=== PATIENT | male | born 1965 | race Caucasian/White ===

== ENCOUNTER 2016-09-17 02:18 | Inpatient (IN) | payer OTHER ==
[~2016-09-17] VITALS: Ht 180.3 cm; Wt 97.5 kg
[2016-09-17] MEDS ORDERED: ONDANSETRON 4 MG INJ ONE (02:37)
[2016-09-17] MEDS ORDERED: morphine 4 MG/ML VIAL ONE (02:37)
[2016-09-17] MEDS ORDERED: morphine 4 MG/ML VIAL IV STA (02:38)
[2016-09-17] MEDS ORDERED: ONDANSETRON 4 MG INJ IV STA (02:38)
--- NOTE | 2016-09-17 02:38 | ERA ---
ER Documentation Chief Complaint Date/Time DATE: 09/17/16 TIME: 02:37 Chief Complaint mid abd pain since 30 minutes ago, distended abdomen HPI The patient is a 50-year-old male, presenting to the ER because of severe upper abdominal pain that began about an hour prior to arrival while he was sleeping, 04/18, no aggravating or relieving factor, associated with vomiting initially food and mucus. He denies similar symptoms previously. He denies fever, chills , neck pain, chest pain, dysuria, diarrhea, constipation. He does not smoke nor drink Past medical history/surgical history: None ROS All systems reviewed and are negative except as per history of present illness. Allergies Allergies: Coded Allergies: No Known Allergy (Unverified , 09/17/16) PMhx/Soc History of Surgery: No Anesthesia Reaction: No Hx Neurological Disorder: No Hx Respiratory Disorders: No Hx Cardiac Disorders: No Hx Psychiatric Problems: No Hx Miscellaneous Medical Probl: Yes (unbilical hernia) Hx Alcohol Use: No Hx Substance Use: No Hx Tobacco Use: No Smoking Status: Never smoker Physical Exam Vitals Vital Signs Date Time Temp Pulse Resp B/P Pulse Ox O2 Delivery O2 Flow Rate FiO2 09/17/16 02:42 95.6 94 21 171/100 96 Room Air 09/17/16 02:21 98.9 99 20 180/104 98 Physical Exam Const: No acute distress. Head: Atraumatic. Eyes: Normal Conjunctiva. ENT: Normal External Ears, Nose and Mouth. Neck: Full range of motion. No meningismus. Resp: Clear to auscultation bilaterally. Cardio: Regular rate and rhythm, no murmurs. Abd: Soft, non distended, normal bowel sounds, moderate upper abdominal tenderness, small reducible umbilical hernia, no rigidity, rebound, CVA tenderness Skin: No petechiae or rashes. Back: No midline or flank tenderness. Ext: No cyanosis, or edema. Neur: Awake and alert. No focal deficit Psych: Normal Mood and Affect. Result Diagram: 09/17/16 0251 09/17/16 0251 Results 24 hrs Laboratory Tests Test 09/17/16 02:51 Activated Partial Thromboplast Time 23.0Sec Alanine Aminotransferase (ALT/SGPT) 51IU/L Albumin 4.3g/dl Albumin/Globulin Ratio 1.22 Alkaline Phosphatase 69IU/L Anion Gap 22 Aspartate Amino Transf (AST/SGOT) 44IU/L Basophils # 0.010^3/ul Basophils % 0.3% Blood Urea Nitrogen 15mg/dl Calcium Level 9.6mg/dl Carbon Dioxide Level 24mmol/L Chloride Level 104mmol/L Creatinine 0.96mg/dl Direct Bilirubin 0.00mg/dl Eosinophils # 0.110^3/ul Eosinophils % 0.9% Globulin 3.50g/dl Glucose Level 161mg/dl Hematocrit 51.2% Hemoglobin 16.8g/dl INR International Normalized Ratio 0.95 Indirect Bilirubin 0.4mg/dl Lipase 49600Y/L Lymphocytes # 3.710^3/ul Lymphocytes % 31.0% Mean Corpuscular Hemoglobin 31.6pg Mean Corpuscular Hemoglobin Concent 32.8g/dl Mean Corpuscular Volume 96.2fl Mean Platelet Volume 11.9fl Monocytes # 1.310^3/ul Monocytes % 10.8% Neutrophils # 6.810^3/ul Neutrophils % 56.5% Nucleated Red Blood Cells # 0.010^3/ul Nucleated Red Blood Cells % 0.0/100WBC Platelet Count 34329^3/UL Potassium Level 4.0mmol/L Prothrombin Time 12.7Sec Prothrombin Time Ratio 1.0 Red Blood Count 5.3210^6/ul Red Cell Distribution Width 12.5% Sodium Level 146mmol/L Total Bilirubin 0.4mg/dl Total Protein 7.8g/dl White Blood Count 12.010^3/ul Current Medications Medications (Trade) Dose Ordered Sig/Heidi Route PRN Reason Start Time Stop Time Status Last Admin Dose Admin Ondansetron HCl (Zofran Inj) 4 mg STK-MED ONCE .ROUTE 09/17/16 02:37 09/17/16 02:38 DC Morphine Sulfate (morphine) 4 mg STK-MED ONCE .ROUTE 09/17/16 02:37 09/17/16 02:38 DC Morphine Sulfate (morphine) 4 mg ONCE STAT IV 09/17/16 02:38 09/17/16 02:39 DC 09/17/16 02:51 Ondansetron HCl 4 mg 4 mg ONCE STAT IV 09/17/16 02:38 09/17/16 02:39 DC 09/17/16 02:51 Sodium Chloride (NS) 1,000 ml @ 1,000 mls/hr Q1H ONCE IV 09/17/16 03:00 09/17/16 03:59 DC 09/17/16 02:51 Hydromorphone HCl 1 mg 1 mg ONCE STAT IV 09/17/16 02:45 09/17/16 02:46 DC 09/17/16 02:52 Sodium Chloride 1,000 ml @ 1,000 mls/hr Q1H ONCE IV 09/17/16 05:00 09/17/16 05:59 09/17/16 05:37 Sodium Chloride (NS) 1,000 ml @ 100 mls/hr Q10H IV 09/17/16 05:28 UNV IV Flush (NS 3 ml) 3 ml PER PROTOCOL IV 09/17/16 05:30 Lorazepam (Ativan) 0.5 mg Q6H PRN IV ANXIETY 09/17/16 05:30 Ondansetron HCl (Zofran Inj) 4 mg Q6H PRN IV NAUSEA AND/OR VOMITING 09/17/16 05:30 Acetaminophen (Tylenol Supp) 650 mg Q6H PRN TX PAIN LEVEL 1-3 OR FEVER 09/17/16 05:30 Hydromorphone HCl (Dilaudid) 1 mg ONCE STAT IV 09/17/16 05:41 09/17/16 05:43 DC 09/17/16 05:49 Procedures/MDM EKG: Read by emergency physician Rate/Rhythm: Normal Sinus Rhythm 62 beats/min QRS, ST, T-waves: No ST elevation, no T inversion Impression: Normal EKG [place] [id number] Radiology Main Line: [phone] DIAGNOSTIC IMAGING REPORT Patient: CAT TOUSSAINT : 1965 Age: 50 Sex: M MR #: [id number] DOS: 09/17/16 0238 Ordering MD: DAJUAN GARCIA MD Location: E/R Room/Bed: PROCEDURE: XR Chest. CLINICAL INDICATION: Pain. TECHNIQUE: Single frontal chest x-ray. COMPARISON: None. FINDINGS: Heart is mildly enlarged.. No CHF.. Hypoventilation with bibasilar atelectasis.. There is no pleural effusion. There is no pneumothorax. The osseous structures are unremarkable. IMPRESSION: Cardiomegaly. Hypoventilation with bibasilar atelectasis. RPTAT: [facility] .Dajuan Jacome MD, MD Date Time Electronically viewed and signed by .Dajuan Jacome MD, MD on 09/17/2016 03:10 .K/ CC: DAJUAN GARCIA MD [place] [address] Radiology Main Line: [phone] DIAGNOSTIC IMAGING REPORT Patient: CAT TOUSSAINT : 1965 Age: 50 Sex: M MR #: [id number] DOS: 09/17/16 0238 Ordering MD: DAJUAN GARCIA MD Location: E/R Room/Bed: PROCEDURE: CT ABDOMEN/PELVIS WITHOUT CONTRAST CLINICAL INDICATION: 50-year-old male with abdominal pain. TECHNIQUE: The study was performed utilizing a [employer] VCT 64-slice CT scanner. Direct axial sections were obtained through the abdomen and pelvis without the use of intravenous contrast material. Sagittal and coronal reformations were obtained. Automated exposure control and iterative reconstruction techniques were utilized for this examination. The images were reviewed on a PACS workstation. CTD/vol = 16.5 mGy; Total Exam DLP = 1060.4 mGy-cm. COMPARISON: None. FINDINGS: There is minimal bibasilar subsegmental atelectasis. There is no evidence for significant pleural effusion. The liver has a normal size and contour without focal areas of abnormal density. No intrahepatic ductal dilatation is seen. The gallbladder is distended with evidence for small gallstone without significant wall thickening. The common hepatic duct is dilated measuring 18 mm. The distal common bile duct appears to be dilated measuring 8.5 mm. The pancreas is the cavernous with peripancreatic infiltration and minimal free fluid consistent with acute pancreatitis. The spleen is identified and has a normal size without abnormal density. The adrenal glands are unremarkable. There are punctate nonobstructing bilateral renal calculi. There is no evidence for obstructive uropathy. The urinary bladder contains urine. There is umbilical hernia present with an opening of 12 x 13 mm containing omental fat with mild infiltration. There is mild retained stool identified within the colon without obstruction. There are multiple diffuse scattered diverticula throughout the colon without surrounding inflammatory changes. The appendix is visualized and is without abnormal thickening or surrounding inflammatory reaction. There is no significant free fluid. The prostate is mildly prominent. Mild bilateral inguinal hernias containing fat. The aortoiliac vessels are without aneurysmal dilatation. Mild degenerative changes are present within the spine. IMPRESSION: 1. Distended gallbladder with cholelithiasis and dilated common hepatic and bile ducts. 2. Acute pancreatitis. 3. Small umbilical hernia containing omental fat with mild infiltration. 4. Colonic diverticulosis. 5. Mild retained stool without obstruction. 6. No CT evidence for appendicitis. 7. Small bilateral nonobstructing renal calculi. 8. Mild bilateral inguinal hernias containing fat. 9. Degenerative changes within the spine. .Olivier Ramirez MD, MD Date Time Electronically viewed and signed by .Oilvier Ramirez MD, MD on 09/17/2016 03:37 .M/ CC: DAJUAN GARCIA MD [place] [address] Radiology Main Line: [phone] DIAGNOSTIC IMAGING REPORT Patient: CAT TOUSSAINT : 1965 Age: 50 Sex: M MR #: [id number] DOS: 09/17/16 0402 Ordering MD: DAJUAN GARCIA MD Location: E/R Room/Bed: PROCEDURE: US Abdomen. CLINICAL INDICATION: Right upper quadrant pain TECHNIQUE: Sanchez scale and color Doppler imaging of the right upper quadrant COMPARISON: CT from 09/17 FINDINGS: The aorta and visualized inferior vena cava are unremarkable in appearance. The liver is diffusely echogenic consistent with hepatic steatosis. No definite focal liver lesions. The gallbladder is significantly distended, measuring 15 cm in length. Multiple nonmobile gallstones are seen. No wall thickening or pericholecystic fluid was seen. The patient was tender throughout the abdomen. No definite specific sonographic Foley's sign. No intrahepatic ductal dilatation was seen. The common bile duct is slightly dilated. The common bile duct measures 8 mm in maximal dimension. The right kidney measures 12.4 cm. No hydronephrosis is seen. 9 mm right renal cyst was seen and a 6 mm right renal stone is also seen. The pancreas is partially obscured by bowel gas. No ascites is seen. IMPRESSION: Study slightly limited by bowel gas. significantly distended gallbladder with nonmobile stones. No definite wall thickening or pericholecystic fluid. Slightly dilated common bile duct. MRCP may be helpful to evaluate for choledocholithiasis. Right renal cyst and 6 mm right renal stone. RPTAT: [facility] Physician Jose Date Time Electronically viewed and signed by Physician Jose on 09/17/2016 05 :12 LE/ CC: DAJUAN GARCIA MD MEDICAL MAKING DECISION: The patient is a 50-year-old male, presenting with acute gallstone pancreatitis, umbilical hernia. He was treated with morphine 4 mg IV, Dilaudid 1 mg IV 2 for pain, Zofran formula IV for nausea and 2 L normal saline with good response. The differential diagnoses considered include but are not limited to cholelithiasis, cholecystitis, cystitis, pancreatitis, hepatitis, gastritis, peptic ulcer disease, gastric ulcer, appendicitis, diverticulitis, cholangitis, choledocholithiasis, partial small bowel obstruction. Departure Diagnosis: Primary Impression: Gallstone pancreatitis Additional Impression: Umbilical hernia Condition: Stable Comments I discussed the findings with the patient. I discussed the patient with the on- call hospitalist Dr. Brown who was made aware of the lab, the treatment, the patient condition. The patient is admitted to medical surgery bed at 5:30 AM The patient's blood pressure was elevated (>120/80) but appears stable without evidence of hypertension emergency or urgency. The patient was counseled about the risks of hypertension and urged to pursue outpatient monitoring and therapy within a week after discharge with their primary care physician. DAJUAN GARCIA MD Sep 17, 2016 02:37
[2016-09-17 02:42] VITALS: TEMP 95.6
[2016-09-17] MEDS ORDERED: HYDROmorphONE 1 MG/ML SYG IV STA ×2 (02:45→05:41)
[2016-09-17] MEDS ORDERED: SOD CHLORIDE 0.9% 1,000 ML IV ONE ×2 (03:00→05:00)
--- NOTE | 2016-09-17 03:10 | RADRPT ---
PROCEDURE: XR Chest. CLINICAL INDICATION: Pain. TECHNIQUE: Single frontal chest x-ray. COMPARISON: None. FINDINGS: Heart is mildly enlarged.. No CHF.. Hypoventilation with bibasilar atelectasis.. There is no pleur al effusion. There is no pneumothorax. The osseous structures are unremarkable. IMPRESSION: Cardiomegaly. Hypoventilation with bibasilar atelectasis. RPTAT: [facility]K .Dajuan Jacome MD, Date Time Electronically viewed and signed by .Dajuan Jacome MD, on 09/17/2016 03:10 .K/
--- NOTE | 2016-09-17 03:37 | RADRPT ---
PROCEDURE: CT ABDOMEN/PELVIS WITHOUT CONTRAST CLINICAL INDICATION: 50-year-old male with abdominal pain. TECHNIQUE: The study was performed utilizing a [employer] [facility] [employer] V[employer] 64-slice CT scanner. Direct axia l sections were obtained through the abdomen and pelvis without the use of intravenous contrast mate rial. Sagittal and coronal reformations were obtained. Automated exposure control and iterative leigh nstruction techniques were utilized for this examination. The images [facility] CTD/vol = 16.5 mGy; Total Exam DLP = 1060.4 mGy-cm. COMPARISON: None. FINDINGS: There is minimal bibasilar subsegmental atelectasis. There is no evidence for significant pleural ef fusion. The liver has a normal size and contour without focal areas of abnormal density. No intrahe patic ductal dilatation is seen. The gallbladder is distended with evidence for small gallstone with out significant wall thickening. The common hepatic duct is dilated measuring 18 mm. The distal co mmon bile duct appears to be dilated measuring 8.5 mm. The pancreas is the cavernous with peripancre atic infiltration and minimal free fluid consistent with acute pancreatitis. The spleen is identifie d and has a normal size without abnormal density. The adrenal glands are unremarkable. There are pun ctate nonobstructing bilateral renal calculi. There is no evidence for obstructive uropathy. The ur inary bladder contains urine. There is umbilical hernia present with an opening of 12 x 13 mm contai chikis omental fat with mild infiltration. There is mild retained stool identified within the colon without obstruction. There are multiple diffuse scattered diverticula throughout the colon without surrounding inflammatory changes. The appendix is visualized and is without abnormal thickening or s urrounding inflammatory reaction. There is no significant free fluid. The prostate is mildly promine nt. Mild bilateral inguinal hernias containing fat. The aortoiliac vessels are without aneurysmal d ilatation. Mild degenerative changes are present within the spine. IMPRESSION: 1. Distended gallbladder with cholelithiasis and dilated common hepatic and bile ducts. 2. Acute pancreatitis. 3. Small umbilical hernia containing omental fat with mild infiltration. 4. Colonic diverticulosis. 5. Mild retained stool without obstruction. 6. No CT evidence for appendicitis. 7. Small bilateral nonobstructing renal calculi. 8. Mild bilateral inguinal hernias containing fat. 9. Degenerative changes within the spine. .Olivier Ramirez MD, MD Date Time Electronically viewed and signed by .Olivier Ramirez MD, MD on 09/17/2016 03:37 ./
[2016-09-17 03:43] LABS: ADD SCAN DIFF NO
[2016-09-17 03:57] LABS: BASOPHILS % 0.3 % (0.0-2.0); EOSINOPHILS # 0.1 10^3/ul (0.0-0.5); EOSINOPHILS % 0.9 % (0.0-7.0); HEMATOCRIT 51.2 % (42.0-52.0); HEMOGLOBIN 16.8 g/dl (14.0-18.0); LYMPHOCYTES # 3.7 10^3/ul (0.8-2.9); MEAN CORPUSCULAR HEMOGLOBIN 31.6 pg (29.0-33.0); MEAN CORPUSCULAR HGB CONC 32.8 g/dl (32.0-37.0); MEAN CORPUSCULAR VOLUME 96.2 fl (82.0-101.0); MEAN PLATELET VOLUME 11.9 fl (7.4-10.4); MONOCYTE # 1.3 10^3/ul (0.3-0.9); MONOCYTES % 10.8 % (0.0-11.0); NEUTROPHIL # 6.8 10^3/ul (1.6-7.5); NEUTROPHILS % 56.5 % (39.0-77.0); PLATELET COUNT 217 10^3/UL (140-415); RED BLOOD COUNT 5.32 10^6/ul (4.70-6.10); RED CELL DISTRIBUTION WIDTH 12.5 % (11.5-14.5)
[2016-09-17 04:15] LABS: ALBUMIN 4.3 g/dl (3.3-4.9); INR 0.95; PROTIME 12.7 Sec (12.2-14.2)
[2016-09-17 04:18] LABS: ALBUMIN/GLOBULIN RATIO 1.22; BILIRUBIN,INDIRECT 0.4 mg/dl (0-1.1); BILIRUBIN,TOTAL 0.4 mg/dl (0.2-1.3); CREATININE 0.96 mg/dl (0.61-1.24); TOTAL PROTEIN 7.8 g/dl (6.1-8.1)
[2016-09-17 04:19] LABS: CALCIUM 9.6 mg/dl (8.4-10.2)
--- NOTE | 2016-09-17 05:12 | RADRPT ---
PROCEDURE: US Abdomen. CLINICAL INDICATION: Right upper quadrant pain TECHNIQUE: Sanchez scale and color Doppler imaging of the right upper quadrant COMPARISON: CT from 09/17 FINDINGS: The aorta and visualized inferior vena cava are unremarkable in appearance. The liver is diffusely echogenic consistent with hepatic steatosis. No definite focal liver lesions. The gallbladder is si gnificantly distended, measuring 15 cm in length. Multiple nonmobile gallstones are seen. No wall thickening or pericholecystic fluid was seen. The patient was tender throughout the abdomen. No de finite specific sonographic Foley's sign. No intrahepatic ductal dilatation was seen. The common b ile duct is slightly dilated. The common bile duct measures 8 mm in maximal dimension. The right kid jacobo measures 12.4 cm. No hydronephrosis is seen. 9 mm right renal cyst was seen and a 6 mm right re nal stone is also seen. The pancreas is partially obscured by bowel gas. No ascites is seen. IMPRESSION: Study slightly limited by bowel gas. significantly distended gallbladder with nonmobile stones. No definite wall thickening or pericholecystic fluid. Slightly dilated common bile duct. MRCP may be helpful to evaluate for choledocholithiasis. Right renal cyst and 6 mm right renal stone. RPTAT: [facility] Physician Jose Date Time Electronically viewed and signed by Physician Jose on 09/17/2016 05:12 ARIS/
--- NOTE | 2016-09-17 05:25 | HP ---
Date/Time of Note Date/Time of Note DATE: 09/17/16 TIME: 05:25 Assessment/Plan VTE Prophylaxis VTE Prophylaxis Intervention: contraindicated VTE Contraindication Reason: bleeding Assessment/Plan Assessment/Plan 1) Gallstone pancreatitis - Admit to Med/Surg - CONSULT: GI - NPO 2) Distended gallbladder with cholelithiasis and dilated common hepatic and bile ducts 3) Umbilical hernia - Reducible. No need for urgent surgical repair at this time. HPI/ROS Admit Date/Time Admit Date/Time Hx of Present Illness Chief Complaint Abdominal Pain HPI The patient is a 50-year-old male, presenting to the ER because of severe upper abdominal pain that began about an hour prior to arrival while he was sleeping, 04/18, no aggravating or relieving factor, associated with vomiting initially food and mucus. He denies similar symptoms previously. He denies fever, chills , neck pain, chest pain, dysuria, diarrhea, constipation. He does not smoke nor drink. He admits that if he does not eat by 8:30/9 in the AM he will get dizzy and shaky. No history of DM. ER Course per ER Physician: Patient was treated with morphine 4 mg IV, Dilaudid 1 mg IV 2 for pain, Zofran formula IV for nausea and 2 L normal saline with good response. The differential diagnoses considered include but are not limited to cholelithiasis , cholecystitis, cystitis, pancreatitis, hepatitis, gastritis, peptic ulcer disease, gastric ulcer, appendicitis, diverticulitis, cholangitis, choledocholithiasis, partial small bowel obstruction. ROS Constitutional: No chills, No diaphoresis, No fatigue, No febrile, No nausea Eyes: No discharge, No visual change ENT: sore throat (Throat hurts becasue of the NGT.), No congestion, No discharge Respiratory: No cough, No shortness of breath, No wheezing Cardiovascular: No chest pain, No edema, No palpitations Gastrointestinal: pain, No constipation, No diarrhea, No nausea, No vomiting Genitourinary: No bleeding, No dysuria, No flank pain, No hematuria Musculoskeletal: No back pain, No neck pain Skin: No bruising, No pruritis, No rash Neurologic: No confusion, No headache Endocrine: No polydypsia, No polyuria Lymphatic: No adenopathy, No tender nodes Immunologic: No pruritis, No rhinitis PMH/Family/Social Past Surgical History Past Surgical Hx: no surgical history Social History Alcohol Use: none Smoking Status: Never smoker Drug Use: none Exam/Review of Systems Vital Signs Vitals Vital Signs Date Time Temp Pulse Resp B/P Pulse Ox O2 Delivery O2 Flow Rate FiO2 09/17/16 02:42 95.6 94 21 171/100 96 Room Air Exam Exam Const: Alert and oriented. In no acute distress. Head: Normocephalic/Atraumatic. Eyes: No scleral icterus. Normal-appearing Conjunctiva. ENT: Normal External Ears, Nose and Mouth. Moist mucus membranes. Neck: Supple. No lymphadenopathy. Resp: Clear to auscultation bilaterally. Normal respiratory effort. Cardio: Regular rate and rhythm, no murmurs. Abd: Soft, non distended, normal bowel sounds, moderate upper abdominal tenderness, no guarding, mild rebound noted diffusely. Small reducible umbilical hernia, No rigidity. Skin: Normal moisture and temperature. Good turgor. No petechiae or rashes. Ext: No cyanosis, or edema. Radial and DP pulses +2/4 and equal bilaterally Neur: Awake and alert. No focal deficit. Speech normal Psych: Appropriate Mood and Affect. Good eye contact. Labs Result Diagram: 09/17/16 0251 09/17/16 0251 Medications Medications Laboratory Tests Test 09/17/16 02:51 Activated Partial Thromboplast Time 23.0Sec Alanine Aminotransferase (ALT/SGPT) 51IU/L Albumin 4.3g/dl Albumin/Globulin Ratio 1.22 Alkaline Phosphatase 69IU/L Anion Gap 22 Aspartate Amino Transf (AST/SGOT) 44IU/L Basophils # 0.010^3/ul Basophils % 0.3% Blood Urea Nitrogen 15mg/dl Calcium Level 9.6mg/dl Carbon Dioxide Level 24mmol/L Chloride Level 104mmol/L Creatinine 0.96mg/dl Direct Bilirubin 0.00mg/dl Eosinophils # 0.110^3/ul Eosinophils % 0.9% Globulin 3.50g/dl Glucose Level 161mg/dl Hematocrit 51.2% Hemoglobin 16.8g/dl INR International Normalized Ratio 0.95 Indirect Bilirubin 0.4mg/dl Lipase 50721H/L Lymphocytes # 3.710^3/ul Lymphocytes % 31.0% Mean Corpuscular Hemoglobin 31.6pg Mean Corpuscular Hemoglobin Concent 32.8g/dl Mean Corpuscular Volume 96.2fl Mean Platelet Volume 11.9fl Monocytes # 1.310^3/ul Monocytes % 10.8% Neutrophils # 6.810^3/ul Neutrophils % 56.5% Nucleated Red Blood Cells # 0.010^3/ul Nucleated Red Blood Cells % 0.0/100WBC Platelet Count 02811^3/UL Potassium Level 4.0mmol/L Prothrombin Time 12.7Sec Prothrombin Time Ratio 1.0 Red Blood Count 5.3210^6/ul Red Cell Distribution Width 12.5% Sodium Level 146mmol/L Total Bilirubin 0.4mg/dl Total Protein 7.8g/dl White Blood Count 12.010^3/ul Current Medications Sodium Chloride (NS) 1,000 ml @ 1,000 mls/hr Q1H ONCE IV ; Start 09/17/16 at 05 :00; Stop 09/17/16 at 05:59 Procedures Procedures Laboratory Tests Test 09/17/16 02:51 Activated Partial Thromboplast Time 23.0Sec Alanine Aminotransferase (ALT/SGPT) 51IU/L Albumin 4.3g/dl Albumin/Globulin Ratio 1.22 Alkaline Phosphatase 69IU/L Anion Gap 22 Aspartate Amino Transf (AST/SGOT) 44IU/L Basophils # 0.010^3/ul Basophils % 0.3% Blood Urea Nitrogen 15mg/dl Calcium Level 9.6mg/dl Carbon Dioxide Level 24mmol/L Chloride Level 104mmol/L Creatinine 0.96mg/dl Direct Bilirubin 0.00mg/dl Eosinophils # 0.110^3/ul Eosinophils % 0.9% Globulin 3.50g/dl Glucose Level 161mg/dl Hematocrit 51.2% Hemoglobin 16.8g/dl INR International Normalized Ratio 0.95 Indirect Bilirubin 0.4mg/dl Lipase 62713U/L Lymphocytes # 3.710^3/ul Lymphocytes % 31.0% Mean Corpuscular Hemoglobin 31.6pg Mean Corpuscular Hemoglobin Concent 32.8g/dl Mean Corpuscular Volume 96.2fl Mean Platelet Volume 11.9fl Monocytes # 1.310^3/ul Monocytes % 10.8% Neutrophils # 6.810^3/ul Neutrophils % 56.5% Nucleated Red Blood Cells # 0.010^3/ul Nucleated Red Blood Cells % 0.0/100WBC Platelet Count 11268^3/UL Potassium Level 4.0mmol/L Prothrombin Time 12.7Sec Prothrombin Time Ratio 1.0 Red Blood Count 5.3210^6/ul Red Cell Distribution Width 12.5% Sodium Level 146mmol/L Total Bilirubin 0.4mg/dl Total Protein 7.8g/dl White Blood Count 12.010^3/ul RADIOLOGY: PROCEDURE: XR Chest. FINDINGS: Heart is mildly enlarged.. No CHF.. Hypoventilation with bibasilar atelectasis.. There is no pleural effusion. There is no pneumothorax. The osseous structures are unremarkable. IMPRESSION: Cardiomegaly. Hypoventilation with bibasilar atelectasis. PROCEDURE: CT ABDOMEN/PELVIS WITHOUT CONTRAST FINDINGS: There is minimal bibasilar subsegmental atelectasis. There is no evidence for significant pleural effusion. The liver has a normal size and contour without focal areas of abnormal density. No intrahepatic ductal dilatation is seen. The gallbladder is distended with evidence for small gallstone without significant wall thickening. The common hepatic duct is dilated measuring 18 mm. The distal common bile duct appears to be dilated measuring 8.5 mm. The pancreas is the cavernous with peripancreatic infiltration and minimal free fluid consistent with acute pancreatitis. The spleen is identified and has a normal size without abnormal density. The adrenal glands are unremarkable. There are punctate nonobstructing bilateral renal calculi. There is no evidence for obstructive uropathy. The urinary bladder contains urine. There is umbilical hernia present with an opening of 12 x 13 mm containing omental fat with mild infiltration. There is mild retained stool identified within the colon without obstruction. There are multiple diffuse scattered diverticula throughout the colon without surrounding inflammatory changes. The appendix is visualized and is without abnormal thickening or surrounding inflammatory reaction. There is no significant free fluid. The prostate is mildly prominent. Mild bilateral inguinal hernias containing fat. The aortoiliac vessels are without aneurysmal dilatation. Mild degenerative changes are present within the spine. IMPRESSION: 1. Distended gallbladder with cholelithiasis and dilated common hepatic and bile ducts. 2. Acute pancreatitis. 3. Small umbilical hernia containing omental fat with mild infiltration. 4. Colonic diverticulosis. 5. Mild retained stool without obstruction. 6. No CT evidence for appendicitis. 7. Small bilateral nonobstructing renal calculi. 8. Mild bilateral inguinal hernias containing fat. 9. Degenerative changes within the spine. PROCEDURE: US Abdomen. FINDINGS: The aorta and visualized inferior vena cava are unremarkable in appearance. The liver is diffusely echogenic consistent with hepatic steatosis. No definite focal liver lesions. The gallbladder is significantly distended, measuring 15 cm in length. Multiple nonmobile gallstones are seen. No wall thickening or pericholecystic fluid was seen. The patient was tender throughout the abdomen. No definite specific sonographic Foley's sign. No intrahepatic ductal dilatation was seen. The common bile duct is slightly dilated. The common bile duct measures 8 mm in maximal dimension. The right kidney measures 12.4 cm. No hydronephrosis is seen. 9 mm right renal cyst was seen and a 6 mm right renal stone is also seen. The pancreas is partially obscured by bowel gas. No ascites is seen. IMPRESSION: Study slightly limited by bowel gas. significantly distended gallbladder with nonmobile stones. No definite wall thickening or pericholecystic fluid. Slightly dilated common bile duct. MRCP may be helpful to evaluate for choledocholithiasis. Right renal cyst and 6 mm right renal stone. EKG: EKG: Read by emergency physician Rate/Rhythm: Normal Sinus Rhythm 62 beats/min QRS, ST, T-waves: No ST elevation, no T inversion Impression: Normal EKG SHANI SAUL DO Sep 17, 2016 05:25
[2016-09-17] MEDS ORDERED: SOD CHLORIDE 0.9% 1,000 ML IV SCH (05:28)
[2016-09-17] MEDS ORDERED: ONDANSETRON 4 MG INJ IV PRN (05:30)
[2016-09-17] MEDS ORDERED: LORAZEPAM 2 MG INJ IV PRN (05:30)
[2016-09-17] MEDS ORDERED: ACETAMINOPHEN 650 MG SUPP PR PRN (05:30)
[2016-09-17] MEDS ORDERED: NACL 0.9% 3 ML SYG IV SCH (05:30)
[2016-09-17 06:04] LABS: URINE BLOOD (Dip) POC Trace-lysed (NEGATIVE)
[2016-09-17 06:15] VITALS: Ht 180.3 cm; Wt 97.5 kg
[2016-09-17 06:24] VITALS: BP 130/80; PULSE 80; RESP 18
[2016-09-17 08:12] VITALS: BP 122/80; RESP 16
--- NOTE | 2016-09-17 08:31 | CONS ---
Date/Time of Note Date/Time of Note DATE: 09/17/16 TIME: 08:29 Assessment/Plan Assessment/Plan Additional Assessment/Plan Abdominal pain/nausea/vomiting Pancreatitis Rule out choledocholithiasis IVF Hydration Nausea and pain control NPO till pain free Review MRCP ERCP if clinically indicated, pt advised of R/B/A of procedure and she provides informed consent to proceed Review triglycerides Monitor LFTs, amylase, lipase Recommend Surgery consult Further recommendations depend on clinical course Patient seen in collaboration with Dr. Lloyd Consultation Date/Type/Reason Admit Date/Time Hx of Present Illness Mr Gerald Ricardo is 50 YO M that presented to ED intense abdominal pain, no nausea, nonbloody bilious vomiting for several hours as started earlier this morning. Patient denies fever, chills, diarrhea, hematemesis, sick contacts, EtOH abuse, travel outside the [place], metal implants, new medications, and previous episode. Patient denies any comorbid conditions. Lipase presently over 56,000. Past Medical History Medical History: no pertinent history Past Surgical History Past Surgical Hx: no surgical history Social History Alcohol Use: rarely Smoking Status: Never smoker Exam/Review of Systems Vital Signs Vitals Vital Signs Date Time Temp Pulse Resp B/P Pulse Ox O2 Delivery O2 Flow Rate FiO2 09/17/16 08:12 97.8 69 16 122/80 95 09/17/16 06:24 Room Air Intake and Output 09/16/16 09/16/16 09/17/16 15:00 23:00 07:00 Output Total 200 ml Balance -200 ml Exam Constitutional: alert, oriented, well developed Psych: nl mood/affect Head: normocephalic Eyes: EOMI, nl conjunctiva, nl lids ENMT: nl external ears & nose, nl lips & teeth, nl nasal mucosa & septum Respiratory: clear to auscultation, normal air movement Cardiovascular: regular rate and rhythm Gastrointestinal: soft, right upper quadrant and epigastric tenderness Musculoskeletal: nl extremities to inspection Neurological: COMMODITY SUPERVISOR II-XII intact Results Result Diagram: 09/17/16 0251 09/17/16 0251 Results 24 hrs Laboratory Tests Test 09/17/16 02:51 09/17/16 06:08 Activated Partial Thromboplast Time 23.0 L Alanine Aminotransferase (ALT/SGPT) 51 Albumin 4.3 Albumin/Globulin Ratio 1.22 Alkaline Phosphatase 69 Anion Gap 22 H Aspartate Amino Transf (AST/SGOT) 44 Basophils # 0.0 Basophils % 0.3 Blood Urea Nitrogen 15 Calcium Level 9.6 Carbon Dioxide Level 24 Chloride Level 104 Creatinine 0.96 Direct Bilirubin 0.00 Eosinophils # 0.1 Eosinophils % 0.9 Globulin 3.50 H Glucose Level 161 Hematocrit 51.2 Hemoglobin 16.8 INR International Normalized Ratio 0.95 Indirect Bilirubin 0.4 Lipase 65176 H Lymphocytes # 3.7 H Lymphocytes % 31.0 Mean Corpuscular Hemoglobin 31.6 Mean Corpuscular Hemoglobin Concent 32.8 Mean Corpuscular Volume 96.2 Mean Platelet Volume 11.9 H Monocytes # 1.3 H Monocytes % 10.8 Neutrophils # 6.8 Neutrophils % 56.5 Nucleated Red Blood Cells # 0.0 Nucleated Red Blood Cells % 0.0 Platelet Count 217 Potassium Level 4.0 Prothrombin Time 12.7 Prothrombin Time Ratio 1.0 Red Blood Count 5.32 Red Cell Distribution Width 12.5 Sodium Level 146 H Total Bilirubin 0.4 Total Protein 7.8 White Blood Count 12.0 H Bedside Urine Blood Trace-lysed H Bedside Urine Glucose (UA) Negative Bedside Urine Ketones (LAB) Negative Bedside Urine Leukocyte Esterase (L Negative Bedside Urine Nitrite (LAB) Negative Bedside Urine Protein (LAB) Trace H Bedside Urine pH (LAB) 5.5 Medications Medications Current Medications Sodium Chloride (NS) 1,000 ml @ 100 mls/hr Q10H IV Last administered on 06:30; Admin Dose 100 MLS/HR; Start 09/17/16 at 05:28 Lorazepam (Ativan) 0.5 mg Q6H PRN IV ANXIETY; Start 09/17/16 at 05:30 Ondansetron HCl (Zofran Inj) 4 mg Q6H PRN IV NAUSEA AND/OR VOMITING; Start 05/26 at 05:30 Acetaminophen (Tylenol Supp) 650 mg Q6H PRN MS PAIN LEVEL 1-3 OR FEVER; Start 09/17/16 at 05:30 KALYANI MORRELL Sep 17, 2016 08:30
[2016-09-17] MEDS: morphine 2 MG INJ IV PRN ×3 (09:56→21:21)
[2016-09-17] MEDS: POTASSIUM CHLORIDE 10 MEQ in SOD CHLORIDE 0.45% 1,000 ML IV SCH ×2 (13:17→21:22)
[2016-09-17] MEDS: FAMOTIDINE 20 MG INJ IV SCH (17:47)
[2016-09-17 20:01] VITALS: BP 138/87; RESP 20
[2016-09-17 20:29] VITALS: BP 128/68; PULSE 76; RESP 18
--- NOTE | 2016-09-17 20:32 | RADRPT ---
PROCEDURE: MRCP. CLINICAL INDICATION: Elevated liver function tests. TECHNIQUE: MRCP was performed. The following sequences were obtained: Three plane gradient echo localizers, coronal gradient echo images, breath hold axial T2-weighted fat saturation images, delmar nal T2-weighted images, axial 3-D LAVA images, axial T2-weighted breath hold fast spin echo images, and 3-D coronal rotating MIP images of the biliary tree. COMPARISON: Right upper quadrant abdomen ultrasound and CT scan of the abdomen and pelvis done ear lier the same day. FINDINGS: The liver is normal in size. There is normal signal intensity within the liver. There is no focal hepatic lesion. The spleen is normal in size and homogeneous in signal intensity. Multiple gallstones are present in the gallbladder. There is no evidence of cholecystitis. The gall bladder is distended. The common bile duct is dilated measuring 17 mm in diameter. There is mild i ntrahepatic biliary dilatation. There is a probable 0.5 cm calculus distally in the common bile armani t. The pancreatic duct is mildly dilated measuring 4 mm in diameter. There is edema of the head and body of the pancreas with mild surrounding mesenteric edema and a sma ll amount of free fluid in the anterior pararenal spaces consistent with acute pancreatitis. There is no evidence of pancreatic mass. A small benign cyst is present inferiorly in the right kidney measuring 1.0 cm. Kidneys are otherwi se unremarkable. IMPRESSION: 1. Gallstones in the gallbladder. Gallbladder distension. No evidence of cholecystitis. 2. Dilated common bile duct measuring 17 mm and mildly dilated pancreatic duct measuring 4 mm. 3. Probable 0.5 cm obstructing calculus distally in the common bile duct. 4. Acute pancreatitis. 5. Small benign cyst in the right kidney inferiorly. 6. Otherwise unremarkable study. RPTAT: QQ .Can Mayfield MD, Date Time Electronically viewed and signed by .Can Mayfield MD, MD on 09/17/2016 20:31 .R/
[2016-09-17 20:38] VITALS: BP_SYST 132; BP_SYST 138; BP_DIAS 60; BP_DIAS 87; RESP 20
[2016-09-18] MEDS: morphine 2 MG INJ IV PRN (04:04)
[2016-09-18 05:04] LABS: ADD SCAN DIFF NO
[2016-09-18 05:16] LABS: BASOPHILS % 0.1 % (0.0-2.0); HEMATOCRIT 47.3 % (42.0-52.0); HEMOGLOBIN 15.6 g/dl (14.0-18.0); LYMPHOCYTES # 0.9 10^3/ul (0.8-2.9); LYMPHOCYTES % 5.6 % (15.0-51.0); MEAN CORPUSCULAR HEMOGLOBIN 31.6 pg (29.0-33.0); MEAN CORPUSCULAR VOLUME 95.9 fl (82.0-101.0); MEAN PLATELET VOLUME 11.7 fl (7.4-10.4); MONOCYTE # 1.2 10^3/ul (0.3-0.9); MONOCYTES % 7.3 % (0.0-11.0); NEUTROPHILS % 86.6 % (39.0-77.0); PLATELET COUNT 180 10^3/UL (140-415); RED BLOOD COUNT 4.93 10^6/ul (4.70-6.10); RED CELL DISTRIBUTION WIDTH 12.7 % (11.5-14.5); WHITE BLOOD COUNT 16.2 10^3/ul (4.8-10.8)
[2016-09-18 05:27] LABS: ALBUMIN 3.7 g/dl (3.3-4.9)
[2016-09-18 05:30] LABS: BILIRUBIN,INDIRECT 1.2 mg/dl (0-1.1); BILIRUBIN,TOTAL 1.2 mg/dl (0.2-1.3)
[2016-09-18 05:40] LABS: ALBUMIN 3.5 g/dl (3.3-4.9)
[2016-09-18 05:41] LABS: POTASSIUM 4.1 mmol/L (3.5-5.1)
[2016-09-18 05:43] LABS: ALBUMIN/GLOBULIN RATIO 1.12; BILIRUBIN,INDIRECT 1.2 mg/dl (0-1.1); BILIRUBIN,TOTAL 1.2 mg/dl (0.2-1.3); CREATININE 0.85 mg/dl (0.61-1.24); TOTAL PROTEIN 6.6 g/dl (6.1-8.1)
[2016-09-18 05:44] LABS: CALCIUM 8.4 mg/dl (8.4-10.2)
[2016-09-18 05:46] LABS: PHOSPHORUS 3.1 mg/dl (2.5-4.9)
[2016-09-18] MEDS: POTASSIUM CHLORIDE 10 MEQ in SOD CHLORIDE 0.45% 1,000 ML IV SCH ×3 (06:02→21:37)
[2016-09-18] MEDS: FAMOTIDINE 20 MG INJ IV SCH ×2 (06:02→17:29)
[2016-09-18 06:40] LABS: THYROID STIMULATING HORMONE 0.237 MIU/L (0.465-4.680)
[2016-09-18] MEDS ORDERED: morphine 4 MG/ML VIAL IV PRN (07:30)
[2016-09-18 07:53] VITALS: BP 141/81; RESP 18
[2016-09-18] MEDS ORDERED: morphine 2 MG INJ IV ONE (09:30)
--- NOTE | 2016-09-18 10:43 | PN ---
DATE: 09/18/2016 TIME OF EVALUATION: 10 a.m. SUBJECTIVE DATA: Complains of severe abdominal pain. Denies any nausea. OBJECTIVE DATA: VITAL SIGNS: Temperature 99.0, pulse rate 86, respiratory rate 18, blood pressure 141/81, oxygen [id number]% on room air. GENERAL: This is a well-built, well-nourished male lying in bed in no apparent distress. HEENT: Head normocephalic and atraumatic. Eyes: Anicteric sclerae. Conjunctivae clear. ENT: Nasal septum is midline. Oral mucosa is moist. NECK: Supple. No JVD noticed. RESPIRATORY: Bilaterally clear to auscultation. No adventitious breath sounds heard. No use of accessory muscles of respiration. CARDIAC: Regular rate and rhythm. No murmurs heard. ABDOMEN: Soft. Diffuse tenderness especially in the epigastric area. Bowel sounds hypoactive in all 4 quadrants. GENITOURINARY: Deferred. EXTREMITIES: No cyanosis, no clubbing, no edema. Peripheral pulses are palpable. NEUROLOGIC: The patient is awake, alert and oriented. Cranial nerves are grossly intact. LABORATORY AND DIAGNOSTIC DATA: WBC 16.2, hemoglobin 15.6, hematocrit 47.3, platelet count 180. Sodium 141, potassium 4.1, chloride 104, carbon dioxide 25 , anion gap 16, BUN 12, creatinine 0.85, glucose 119, calcium 8.4, phosphorus 3.1, magnesium 2.0. Triglycerides 90, total cholesterol 213, LDL 158, HDL 35, lipase 2736. ASSESSMENT AND PLAN: 1. Acute pancreatitis, most probably gallstone pancreatitis. Continue n.p.o. Continue pain medications. Continue IV fluids. 2. Cholelithiasis with underlying common bile duct dilatation and probable 0.5 cm obstructing calculus in the distal common bile duct. Gastroenterology following. The patient most probably requires ERCP. Continue pain control. Continue the patient to be n.p.o. 3. Dyslipidemia. Elevated total cholesterol and suboptimal LDL. The patient ideally needs to be on a statin. However, we will hold any statins at this time. 4. Prediabetes. Hemoglobin A1c 6.1. We will advise a low-carbohydrate diet. 5. Fluid, electrolytes and nutrition. Continue n.p.o. Continue IV fluids. 6. Gastrointestinal prophylaxis with histamine H2 receptor blockers. 7. Deep venous thrombosis prophylaxis with bilateral sequential compression devices. 8. Plan. Continue pain control. Await further recommendations from gastroenterology. The patient will be started on antibiotics to prevent any underlying cholangitis since the patient has worsening WBC. Case discussed with Dr. Quezada. CAROLINA QUEZADA MD, AM/WALI Conf#: [id number] DID#: [id number] MTDD
--- NOTE | 2016-09-18 10:46 | CONS ---
Date/Time of Note Date/Time of Note DATE: 09/18/16 TIME: 10:44 Assessment/Plan Assessment/Plan Chief Complaint/Hosp Course Mr Gerald Ricardo is 50 YO M that presented to ED intense abdominal pain, no nausea, nonbloody bilious vomiting for several hours as started earlier this morning. Patient denies fever, chills, diarrhea, hematemesis, sick contacts, EtOH abuse, travel outside the [place], metal implants, new medications, and previous episode. Patient denies any comorbid conditions. Lipase presently over 56,000. Problems: Additional Assessment/Plan Abdominal pain/nausea/vomiting Pancreatitis Rule out choledocholithiasis IVF Hydration Nausea and pain control NPO till pain free MRCP: 1. Gallstones in the gallbladder. Gallbladder distension. No evidence of cholecystitis. 2. Dilated common bile duct measuring 17 mm and mildly dilated pancreatic duct measuring 4 mm. 3. Probable 0.5 cm obstructing calculus distally in the common bile duct. 4. Acute pancreatitis. ERCP tomorrow with Dr. Lloyd, pt advised of R/B/A of procedure and she provides informed consent to proceed Review triglycerides Monitor LFTs, amylase, lipase Recommend Surgery consult Further recommendations depend on clinical course Patient seen in collaboration with Dr. Lloyd Consultation Date/Type/Reason Admit Date/Time Sep 17, 2016 at 05:21 Initial Consult Date Type of Consultation: Gastroenterology Reason for Consultation Pancreatitis 24 HR Interval Summary Free Text/Dictation Pain better controlled with morphine MRCP CBD dilation ERCP planned tomorrow with Dr. Lloyd Exam/Review of Systems Vital Signs Vitals Vital Signs Date Time Temp Pulse Resp B/P Pulse Ox O2 Delivery O2 Flow Rate FiO2 09/18/16 07:53 99.0 86 18 141/81 95 09/17/16 20:29 Room Air Intake and Output 09/17/16 09/17/16 09/18/16 15:00 23:00 07:00 Intake Total 0 ml 1500 ml Output Total 850 ml 1200 ml Balance -850 ml 300 ml Exam Constitutional: alert, oriented, well developed Psych: nl mood/affect Head: normocephalic Eyes: EOMI, nl conjunctiva, nl lids ENMT: nl external ears & nose, nl lips & teeth, nl nasal mucosa & septum Respiratory: clear to auscultation, normal air movement Cardiovascular: regular rate and rhythm Gastrointestinal: soft, right upper quadrant and epigastric tenderness Musculoskeletal: nl extremities to inspection Neurological: MEDICAL ACCOUNTING CLERK II-XII intact Results Result Diagram: 09/18/1643409/18/16434 Results 24 hrs Laboratory Tests Test 09/18/16 04:35 Alanine Aminotransferase (ALT/SGPT) 58 Albumin 3.7 Albumin/Globulin Ratio 1.12 Alkaline Phosphatase 59 Anion Gap 16 Aspartate Amino Transf (AST/SGOT) 40 Basophils # 0.0 Basophils % 0.1 Blood Urea Nitrogen 12 Calcium Level 8.4 Carbon Dioxide Level 25 Chloride Level 104 Cholesterol Level 213 H Cholesterol/HDL Ratio 6.0 Creatinine 0.85 Direct Bilirubin 0.00 Eosinophils # 0.0 Eosinophils % 0.0 Free Thyroxine 0.84 Globulin 3.10 Glucose Level 119 # HDL Cholesterol 35 Hematocrit 47.3 Hemoglobin 15.6 Hemoglobin A1c 6.1 H Indirect Bilirubin 1.2 H LDL Cholesterol, Calculated 158 Lipase 2746 H Lymphocytes # 0.9 Lymphocytes % 5.6 L Magnesium Level 2.0 Mean Corpuscular Hemoglobin 31.6 Mean Corpuscular Hemoglobin Concent 33.0 Mean Corpuscular Volume 95.9 Mean Platelet Volume 11.7 H Monocytes # 1.2 H Monocytes % 7.3 Neutrophils # 14.0 H Neutrophils % 86.6 H Nucleated Red Blood Cells # 0.0 Nucleated Red Blood Cells % 0.0 Phosphorus Level 3.1 Platelet Count 180 Potassium Level 4.1 Red Blood Count 4.93 Red Cell Distribution Width 12.7 Sodium Level 141 Thyroid Stimulating Hormone (TSH) 0.237 L Total Bilirubin 1.2 Total Protein 7.0 Triglycerides Level 98 White Blood Count 16.2 #H Medications Medications Current Medications Lorazepam (Ativan) 0.5 mg Q6H PRN IV ANXIETY; Start 09/17/16 at 05:30 Ondansetron HCl (Zofran Inj) 4 mg Q6H PRN IV NAUSEA AND/OR VOMITING Last administered on 09/17/16 21:28; Admin Dose 4 MG; Start 09/17/16 at 05:30 Acetaminophen 650 mg 650 mg Q6H PRN ID PAIN LEVEL 1-3 OR FEVER; Start 09/17/16 at 05:30 Potassium Chloride/Sodium Chloride (KCl/1/2 NS) 1,005 ml @ 125 mls/hr Q8H3M IV Last administered on 09/18/16 06:02; Admin Dose 125 MLS/HR; Start 09/17/16 at 14:00 Hydromorphone HCl 1 mg 1 mg Q4H PRN IV PAIN; Start 09/18/16 at 10:30 Piperacillin Sod/ Tazobactam Sod (Zosyn 3.375gm/ 100 ml (Pmx)) 100 ml @ 200 mls /hr Q8 IVPB ; Start 09/18/16 at 14:00 KALYANI MORRELL Sep 18, 2016 10:46
[2016-09-18] MEDS: HYDROmorphONE 1 MG/ML SYG IV PRN ×3 (11:25→20:36)
[2016-09-18] MEDS: PIPER-TAZO 3.375 GM IV (PMX) 100 ML IVPB SCH ×2 (13:30→21:48)
[2016-09-18 19:52] VITALS: BP 139/84; RESP 16
[2016-09-19] VITALS (9 sets, daily range): BP systolic 132–146; BP diastolic 75–93; PULSE 92–101; RESP 17–24
[2016-09-19] MEDS: POTASSIUM CHLORIDE 10 MEQ in SOD CHLORIDE 0.45% 1,000 ML IV SCH ×3 (01:09→22:01)
[2016-09-19] MEDS: HYDROmorphONE 1 MG/ML SYG IV PRN ×5 (02:32→21:56)
[2016-09-19] MEDS: PIPER-TAZO 3.375 GM IV (PMX) 100 ML IVPB SCH ×3 (05:37→21:56)
[2016-09-19] MEDS: FAMOTIDINE 20 MG INJ IV SCH ×2 (05:37→18:00)
[2016-09-19 06:01] LABS: ADD SCAN DIFF NO
[2016-09-19 06:16] LABS: ABNORMAL IP MESSAGE 1; BASOPHILS % 0.2 % (0.0-2.0); EOSINOPHILS % 0.1 % (0.0-7.0); HEMATOCRIT 47.6 % (42.0-52.0); HEMOGLOBIN 15.4 g/dl (14.0-18.0); INR 1.14; LYMPHOCYTES # 1.2 10^3/ul (0.8-2.9); LYMPHOCYTES % 6.6 % (15.0-51.0); MEAN CORPUSCULAR HEMOGLOBIN 31.8 pg (29.0-33.0); MEAN CORPUSCULAR HGB CONC 32.4 g/dl (32.0-37.0); MEAN CORPUSCULAR VOLUME 98.1 fl (82.0-101.0); MEAN PLATELET VOLUME 12.2 fl (7.4-10.4); MONOCYTE # 1.8 10^3/ul (0.3-0.9); MONOCYTES % 9.9 % (0.0-11.0); NEUTROPHIL # 15.2 10^3/ul (1.6-7.5); NEUTROPHILS % 82.2 % (39.0-77.0); PLATELET COUNT 149 10^3/UL (140-415); PROTIME 14.6 Sec (12.2-14.2); PT RATIO 1.1; RED BLOOD COUNT 4.85 10^6/ul (4.70-6.10); WHITE BLOOD COUNT 18.5 10^3/ul (4.8-10.8)
[2016-09-19 06:20] LABS: ALBUMIN 3.2 g/dl (3.3-4.9)
[2016-09-19 06:21] LABS: POTASSIUM 4.3 mmol/L (3.5-5.1)
[2016-09-19 06:23] LABS: ALBUMIN/GLOBULIN RATIO 1.14; BILIRUBIN,INDIRECT 1.4 mg/dl (0-1.1); BILIRUBIN,TOTAL 1.4 mg/dl (0.2-1.3); CREATININE 0.83 mg/dl (0.61-1.24)
[2016-09-19 06:24] LABS: CALCIUM 8.5 mg/dl (8.4-10.2)
[2016-09-19 06:30] LABS: AMYLASE 278 U/L (11-123); PHOSPHORUS 2.8 mg/dl (2.5-4.9)
[2016-09-19] MEDS: INDOMETHACIN 50 MG SUPP PR ONE ×2 (12:00→19:15)
--- NOTE | 2016-09-19 14:40 | PN ---
Date/Time of Note Date/Time of Note DATE: 09/19/16 TIME: 14:38 Assessment/Plan VTE Prophylaxis VTE Prophylaxis Intervention: SCD's Lines/Catheters IV Catheter Type (from Nrsg): Peripheral IV Assessment/Plan Chief Complaint/Hosp Course Assessment and plan 1. Acute pancreatitis secondary to gallstones. Continue NPO and IV hydration. Continue with analgesics needed. 2. Cholelithiasis with underlying choledocholithiasis. Tentative plan for ERCP. Continue with pain management 3. Dyslipidemia. We'll advise him for low-fat low-cholesterol diet 4. Prediabetes with hemoglobin A1c of 6.1. Patient advised about weight reduction. Low carbohydrate diet to be initiated DVT prophylaxis: SCDs GERD prophylaxis: H2 sharon Disposition and plan: Continue pain management. Tentative plan for ERCP. Discussed plan of care with Dr. Carter Problems: Subjective 24 Hr Interval Summary Free Text/Dictation Still with reported abdominal pain. Exam/Review of Systems Vital Signs Vitals Vital Signs Date Time Temp Pulse Resp B/P Pulse Ox O2 Delivery O2 Flow Rate FiO2 09/19/16 07:44 98.5 85 18 146/90 95 09/18/16 20:00 2.0 09/17/16 20:29 Room Air Intake and Output 09/18/16 09/18/16 09/19/16 14:59 22:59 06:59 Intake Total 100 ml 1193 ml 1546 ml Output Total 300 ml 1020 ml Balance 100 ml 893 ml 526 ml Exam General: Still reporting having some abdominal discomfort Eyes: pupils equal round, Anicteric sclera Neck: Supple nontender, no JVD Cardiac: S1, S2 auscultated, regular rhythm and rate Pulmonary: No coarse rhonchi or breathing auscultated GI: tender upon palpation more in epigastric area Extremities: No edema bilateral lower extremities Skin: Clean dry and intact Neurologic: Alert to person place and time and situation Results Result Diagram: 09/19/16 0434 09/19/16 0434 Results 24 hrs Laboratory Tests Test 09/19/16 04:34 Activated Partial Thromboplast Time 27.0 Alanine Aminotransferase (ALT/SGPT) 60 Albumin 3.2 L Albumin/Globulin Ratio 1.14 Alkaline Phosphatase 64 Amylase Level 278 H Anion Gap 16 Aspartate Amino Transf (AST/SGOT) 43 Basophils # 0.0 Basophils % 0.2 Blood Urea Nitrogen 12 Calcium Level 8.5 Carbon Dioxide Level 26 Chloride Level 102 Creatinine 0.83 Direct Bilirubin 0.00 Eosinophils # 0.0 Eosinophils % 0.1 Globulin 2.80 Glucose Level 86 Hematocrit 47.6 Hemoglobin 15.4 INR International Normalized Ratio 1.14 Indirect Bilirubin 1.4 H Lipase 472 H Lymphocytes # 1.2 Lymphocytes % 6.6 L Magnesium Level 2.0 Mean Corpuscular Hemoglobin 31.8 Mean Corpuscular Hemoglobin Concent 32.4 Mean Corpuscular Volume 98.1 Mean Platelet Volume 12.2 H Monocytes # 1.8 H Monocytes % 9.9 Neutrophils # 15.2 H Neutrophils % 82.2 H Nucleated Red Blood Cells # 0.0 Nucleated Red Blood Cells % 0.0 Phosphorus Level 2.8 Platelet Count 149 Potassium Level 4.3 Prothrombin Time 14.6 H Prothrombin Time Ratio 1.1 Red Blood Count 4.85 Red Cell Distribution Width 13.0 Sodium Level 140 Total Bilirubin 1.4 H Total Protein 6.0 #L White Blood Count 18.5 H Medications Medications Current Medications Lorazepam (Ativan) 0.5 mg Q6H PRN IV ANXIETY; Start 09/17/16 at 05:30 Ondansetron HCl (Zofran Inj) 4 mg Q6H PRN IV NAUSEA AND/OR VOMITING Last administered on 09/17/16 21:28; Admin Dose 4 MG; Start 09/17/16 at 05:30 Acetaminophen 650 mg 650 mg Q6H PRN [place] PAIN LEVEL 1-3 OR FEVER; Start 09/17/16 at 05:30 Potassium Chloride/Sodium Chloride (KCl/1/2 NS) 1,005 ml @ 125 mls/hr Q8H3M IV Last administered on 09/19/16 10:05; Admin Dose 125 MLS/HR; Start 09/17/16 at 14:00 Hydromorphone HCl 1 mg 1 mg Q4H PRN IV PAIN Last administered on 09/19/16 14: 32; Admin Dose 1 MG; Start 09/18/16 at 10:30 Piperacillin Sod/ Tazobactam Sod (Zosyn 3.375gm/ 100 ml (Pmx)) 100 ml @ 200 mls /hr Q8 IVPB Last administered on 09/19/16 14:32; Admin Dose 200 MLS/HR; Start 09/18/16 at 14:00 DC CAUSEY 13, 2017 14:40
--- NOTE | 2016-09-19 18:52 | HPN ---
Date/Time of Note Date/Time of Note DATE: 09/19/16 TIME: 18:52 Interval H&P Admission Note Pt. seen H&P reviewed: No system changes LEENA LOPEZ MD Sep 19, 2016 18:52
[2016-09-19] MEDS ORDERED: SUCCINYLCHOLINE CHLORIDE 100 MG/5 ML SYG IV ONE (18:54)
[2016-09-19] MEDS ORDERED: ROCURONIUM 50 MG INJ ONE (18:54)
[2016-09-19] MEDS ORDERED: PROPOFOL 20 ML ONE (18:54)
[2016-09-19] MEDS ORDERED: NEOSTIGMINE 3 MG/3 ML SYRINGE ONE (18:54)
[2016-09-19] MEDS ORDERED: LIDOCAINE 2% (SDV) 5 ML INJ ONE (18:54)
[2016-09-19] MEDS ORDERED: GLYCOPYRROLATE 0.4 MG INJ ONE (18:54)
[2016-09-19] MEDS ORDERED: IOHEXOL 300MG/ML 30 ML BTL ONE (18:56)
[2016-09-19] MEDS ORDERED: DIPHENHYDRAMINE 50 MG INJ IV PRN (19:00)
[2016-09-19] MEDS ORDERED: ONDANSETRON 4 MG INJ IV PRN (19:00)
[2016-09-19] MEDS ORDERED: MEPERIDINE 25 MG INJ IV PRN (19:00)
[2016-09-19] MEDS ORDERED: morphine (1 MG/ML) 10ML SYRINGE IV PRN ×2 (19:00)
[2016-09-19] MEDS ORDERED: FENTAnyl 50 MCG/ML VIAL IV PRN ×2 (19:00)
[2016-09-19] MEDS ORDERED: METOCLOPRAMIDE 10 MG INJ IV PRN (19:00)
[2016-09-19] MEDS ORDERED: MIDAZOLAM 1 MG/ML 2 ML INJ IV PRN (19:00)
[2016-09-20] MEDS: HYDROmorphONE 1 MG/ML SYG IV PRN ×6 (03:30→23:34)
[2016-09-20] MEDS: PIPER-TAZO 3.375 GM IV (PMX) 100 ML IVPB SCH ×3 (06:14→22:29)
[2016-09-20] MEDS: FAMOTIDINE 20 MG INJ IV SCH ×2 (06:14→17:50)
[2016-09-20] MEDS: POTASSIUM CHLORIDE 10 MEQ in SOD CHLORIDE 0.45% 1,000 ML IV SCH ×3 (06:14→22:30)
[2016-09-20 07:29] LABS: CARCINOEMBRYONIC ANTIGEN 0.8 ng/ml (0.0-5.0)
[2016-09-20 07:33] LABS: CANCER ANTIGEN 19-9 8.1 U/ml (0.0-37.0)
[2016-09-20 08:32] VITALS: BP 134/87; RESP 16
--- NOTE | 2016-09-20 08:51 | RADRPT ---
PROCEDURE: X-ray fluoroscopy guidance CLINICAL INDICATION: Abdominal pain, ERCP, fluoroscopic guidance TECHNIQUE: Fluoroscopic guidance was utilized for an intraoperative procedure. COMPARISON: None available FINDINGS: Fluoroscopic guidance was utilized for and intraoperative procedure. 138 seconds of fluoroscopy time was utilized for the procedure. 2 x-ray images were obtained during the procedure in progress. The common bile duct and central extrahepatic biliary tree is dilated. IMPRESSION: X-ray fluoroscopic guidance utilized for intraoperative procedure. Dilated common bile duct and central intrahepatic biliary tree. Please see procedure note for details. RPTAT: AA .Yuri Falcon MD, MD Date Time Electronically viewed and signed by .Yuri Falcon MD, on 09/20/2016 08:51 .P/
--- NOTE | 2016-09-20 09:39 | CONS ---
Date/Time of Note Date/Time of Note DATE: 09/20/16 TIME: 09:37 Assessment/Plan Assessment/Plan Chief Complaint/Hosp Course Mr Gerald Ricardo is 50 YO M that presented to ED intense abdominal pain, no nausea, nonbloody bilious vomiting for several hours as started earlier this morning. Patient denies fever, chills, diarrhea, hematemesis, sick contacts, EtOH abuse, travel outside the [place], metal implants, new medications, and previous episode. Patient denies any comorbid conditions. Lipase presently over 56,000. Problems: Additional Assessment/Plan Abdominal pain/nausea/vomiting Pancreatitis Rule out choledocholithiasis IVF Hydration Nausea and pain control Advance diet as tolerated MRCP: 1. Gallstones in the gallbladder. Gallbladder distension. No evidence of cholecystitis. 2. Dilated common bile duct measuring 17 mm and mildly dilated pancreatic duct measuring 4 mm. 3. Probable 0.5 cm obstructing calculus distally in the common bile duct. 4. Acute pancreatitis. ERCP: 1. Bulging papilla, biopsy taken. 2. Stone imported at ampulla. 3. Ampulla appears abnormal papillated, biopsy taken Review triglycerides Monitor LFTs, amylase, lipase Recommend Surgery consult Further recommendations depend on clinical course Patient seen in collaboration with Dr. Lloyd Consultation Date/Type/Reason Admit Date/Time Sep 17, 2016 at 05:21 Type of Consultation: Gastroenterology 24 HR Interval Summary Free Text/Dictation Status post ERCP Awaiting pathology results States pain is improving and tolerating clear diet Advance diet as tolerated Leukocytosis with no fever Exam/Review of Systems Vital Signs Vitals Vital Signs Date Time Temp Pulse Resp B/P Pulse Ox O2 Delivery O2 Flow Rate FiO2 09/20/16 08:32 97.7 67 16 134/87 97 09/19/16 20:45 2.0 09/19/16 20:20 Nasal Cannula Intake and Output 09/19/16 09/19/16 09/20/16 15:00 23:00 07:00 Intake Total 725 ml 875 ml Output Total 500 ml Balance 725 ml 375 ml Exam Constitutional: alert, oriented, well developed Psych: nl mood/affect Head: normocephalic Eyes: EOMI, nl conjunctiva, nl lids ENMT: nl external ears & nose, nl lips & teeth, nl nasal mucosa & septum Respiratory: clear to auscultation, normal air movement Cardiovascular: regular rate and rhythm Gastrointestinal: soft, slight right upper quadrant and epigastric tenderness Musculoskeletal: nl extremities to inspection Neurological: HEADEND TECHNICIAN II-XII intact Results Result Diagram: 09/19/164 09/19/164 Results 24 hrs Laboratory Tests Test 09/20/16 04:25 Amylase Level 99 # CA 19-9 Antigen 8.1 Carcinoembryonic Antigen 0.8 Direct Bilirubin 0.00 Lipase 84 Total Bilirubin 0.0 L Medications Medications Current Medications Lorazepam (Ativan) 0.5 mg Q6H PRN IV ANXIETY; Start 09/17/16 at 05:30 Ondansetron HCl (Zofran Inj) 4 mg Q6H PRN IV NAUSEA AND/OR VOMITING Last administered on 09/17/16 21:28; Admin Dose 4 MG; Start 09/17/16 at 05:30 Acetaminophen 650 mg [address] PAIN LEVEL 1-3 OR FEVER; Start 09/17/16 at 05:30 Potassium Chloride/Sodium Chloride (KCl/1/2 NS) 1,005 ml @ 125 mls/hr Q8H3M IV Last administered on 09/20/16 06:14; Admin Dose 125 MLS/HR; Start 09/17/16 at 14:00 Hydromorphone HCl 1 mg 1 mg Q4H PRN IV PAIN Last administered on 09/20/16 07: 53; Admin Dose 1 MG; Start 09/18/16 at 10:30 Piperacillin Sod/ Tazobactam Sod (Zosyn 3.375gm/ 100 ml (Pmx)) 100 ml @ 200 mls /hr Q8 IVPB Last administered on 09/20/16 06:14; Admin Dose 200 MLS/HR; Start 09/18/16 at 14:00 KALYANI MORRELL Sep 20, 2016 09:39
[2016-09-20 10:41] LABS: ADD SCAN DIFF NO
[2016-09-20 11:01] LABS: ABNORMAL IP MESSAGE 1; BASOPHILS % 0.1 % (0.0-2.0); EOSINOPHILS % 0.2 % (0.0-7.0); HEMATOCRIT 45.3 % (42.0-52.0); HEMOGLOBIN 14.6 g/dl (14.0-18.0); LYMPHOCYTES % 6.5 % (15.0-51.0); MEAN CORPUSCULAR HEMOGLOBIN 31.5 pg (29.0-33.0); MEAN CORPUSCULAR HGB CONC 32.2 g/dl (32.0-37.0); MEAN CORPUSCULAR VOLUME 97.8 fl (82.0-101.0); MONOCYTE # 1.7 10^3/ul (0.3-0.9); MONOCYTES % 11.1 % (0.0-11.0); NEUTROPHIL # 12.5 10^3/ul (1.6-7.5); NEUTROPHILS % 81.3 % (39.0-77.0); PLATELET COUNT 164 10^3/UL (140-415); RED BLOOD COUNT 4.63 10^6/ul (4.70-6.10); RED CELL DISTRIBUTION WIDTH 12.5 % (11.5-14.5); WHITE BLOOD COUNT 15.4 10^3/ul (4.8-10.8)
--- NOTE | 2016-09-20 12:32 | PN ---
Date/Time of Note Date/Time of Note DATE: 09/20/16 TIME: 12:29 Assessment/Plan VTE Prophylaxis VTE Prophylaxis Intervention: SCD's Lines/Catheters IV Catheter Type (from Nrs): Peripheral IV Assessment/Plan Chief Complaint/Hosp Course Assessment and plan 1. Acute pancreatitis secondary to gallstones. Patient status post ERCP. Follow up with final report. Continue to advance diet per GI. Still noted with leukocytosis 2. Cholelithiasis with underlying choledocholithiasis. Status post ERCP. Monitor LFT. 3. Dyslipidemia. Patient advised for low-fat low-cholesterol diet 4. Prediabetes with hemoglobin A1c of 6.1. Patient advised about weight reduction. Continue low carbohydrate diet DVT prophylaxis: SCDs GERD prophylaxis: H2 sharon Disposition and plan: Patient status post ERCP. Still noted with elevated white count. Discussed with GI, monitor inpatient for now. Discharge him cleared by consultants Discussed plan of care with Dr. Carter Problems: Subjective 24 Hr Interval Summary Free Text/Dictation Less reported pain at this time Exam/Review of Systems Vital Signs Vitals Vital Signs Date Time Temp Pulse Resp B/P Pulse Ox O2 Delivery O2 Flow Rate FiO2 09/20/16 08:32 97.7 67 16 134/87 97 09/19/16 20:45 2.0 09/19/16 20:20 Nasal Cannula Intake and Output 09/19/16 09/19/16 09/20/16 14:59 22:59 06:59 Intake Total 725 ml 875 ml Output Total 500 ml Balance 725 ml 375 ml Exam General: Comfortable at present. No apparent distress Eyes: Pupils equal round. Anicteric sclera Neck: No apparent JVD seen Cardiac: Auscultated with regular rate Pulmonary: No adventitious lung sounds auscultated GI: Only minimally tender on epigastric area on palpation Extremities: No edema bilateral lower extremities Skin: Clean dry and intact Neurologic: Alert to person place and time and situation Results Result Diagram: 09/20/16 0425 09/19/16 0434 Results 24 hrs Laboratory Tests Test 09/20/16 04:25 Amylase Level 99 # Basophils # 0.0 Basophils % 0.1 CA 19-9 Antigen 8.1 Carcinoembryonic Antigen 0.8 Direct Bilirubin 0.00 Eosinophils # 0.0 Eosinophils % 0.2 Hematocrit 45.3 Hemoglobin 14.6 Lipase 84 Lymphocytes # 1.0 Lymphocytes % 6.5 L Mean Corpuscular Hemoglobin 31.5 Mean Corpuscular Hemoglobin Concent 32.2 Mean Corpuscular Volume 97.8 Mean Platelet Volume 12.0 H Monocytes # 1.7 H Monocytes % 11.1 H Neutrophils # 12.5 H Neutrophils % 81.3 H Nucleated Red Blood Cells # 0.0 Nucleated Red Blood Cells % 0.0 Platelet Count 164 Red Blood Count 4.63 L Red Cell Distribution Width 12.5 Total Bilirubin 0.0 L White Blood Count 15.4 H Medications Medications Current Medications Lorazepam (Ativan) 0.5 mg Q6H PRN IV ANXIETY; Start 09/17/16 at 05:30 Ondansetron HCl (Zofran Inj) 4 mg Q6H PRN IV NAUSEA AND/OR VOMITING Last administered on 09/17/16 21:28; Admin Dose 4 MG; Start 09/17/16 at 05:30 Acetaminophen 650 mg 650 mg Q6H PRN [place] PAIN LEVEL 1-3 OR FEVER; Start 09/17/16 at 05:30 Potassium Chloride/Sodium Chloride (KCl/1/2 NS) 1,005 ml @ 125 mls/hr Q8H3M IV Last administered on 09/20/16 06:14; Admin Dose 125 MLS/HR; Start 09/17/16 at 14:00 Hydromorphone HCl 1 mg 1 mg Q4H PRN IV PAIN Last administered on 09/20/16 11: 57; Admin Dose 1 MG; Start 09/18/16 at 10:30 Piperacillin Sod/ Tazobactam Sod (Zosyn 3.375gm/ 100 ml (Pmx)) 100 ml @ 200 mls /hr Q8 IVPB Last administered on 09/20/16 06:14; Admin Dose 200 MLS/HR; Start 09/18/16 at 14:00 DC CAUSEY Sep 20, 2016 12:32
--- NOTE | 2016-09-20 16:30 | GILP ---
DATE OF PROCEDURE: 09/19/2016 PROCEDURE: Endoscopic retrograde cholangiopancreatography with sphincterotomy and stone removal, pl us endoscopic retrograde cholangiopancreatography plus biopsies. PREMEDICATION: General anesthesia by anesthesiologist. SURGEON: Gwendolyn Lloyd MD INSTRUMENT USED: Olympus side-viewing panendoscope. TECHNIQUE: After informed consent, with the patient/relatives understanding the procedure, its sulma cations, potential risks and complications, including but not limited to: allergic reaction, bleedin g, perforation or infection, and after all pertinent questions were answered to the patients satisfa ction, the patient/relatives signed witnessed informed consent. Following this, premedication was administered slowly IV push under careful cardiovascular and respi ratory monitoring with pulse oximetry, automatic blood pressure and hospital monitor. Once the sedative effect was achieved the patient was place in the prone position in the radiology s pecial procedures suite; the side viewing panendoscope was introduced and advanced under visual cont rol. Careful examination of the upper gastrointestinal tract, both on insertion as well as withdrawal of the instrument disclosed the following findings: ESOPHAGUS: The mucosa of the entire esophagus appears within normal limits. There is no evidence of esophagitis, varices, neoplasm or stricture. No Hiatal Hernia identified. STOMACH: Upon entrance to the stomach air was insufflated, the gastric gibson distended normally. The mucosa of the fundus, body and antrum of the stomach was carefully examined both head-on and on ret roflexion, and shows no abnormalities. There is no evidence of gastritis, ulcers or neoplasm. PYLORUS: The pylorus appears patent and within normal limits, with no evidence of gastric outlet obs truction. DUODENUM: The duodenal mucosa was carefully examined in the duodenal bulb as well as the second port ion of the duodenum and appears unremarkable with no evidence of duodenitis, ulcer or neoplasm. Sec ond portion of duodenum was reached. The ampulla is extremely large and bulging. It was cannulated without difficulty, and we identified it massively dilated, though we retrieved with a maximum diam eter, probably over 18 mm. There appears to be at least 2 filling defects in the distal area of the common bile duct, presumabl y in the bulging portion of the papilla. Standard sphincterotomy was performed with no significant d ifficulties or problems, and stone fragments were seen exiting the ampulla. Following this, a ballo on catheter measuring 15 to 18 mm was introduced, and we swept the biliary tree on several occasions obtaining 2 sizeable stones. Following this, bile gushed out of the biliary tree. The post-sphinc terotomy appearance is somewhat papillar, and biopsies were obtained to rule out possibility of an i nfiltrative process in the area. IMPRESSION: 1. Hugely prominent bulging papilla. 2. Massively dilated common bile duct. 3. Stones impacted in a bulging papilla. Post-sphincterotomy and stone removal. 4. Biopsies of the ampullary opening obtained in a limited fashion. PLAN: The patient will be observed closely. A clear liquid diet will be introduced if pain free and advanced as tolerated. Pathology will be reviewed as soon as available. Liver function tests will be followed closely. Dictated By: GWENDOLYN LLOYD MS/WALI Conf#: [id number] DID#: [id number] CC: SHANI SAUL MD;*End*
[2016-09-20 20:08] VITALS: BP 140/84; RESP 20
[2016-09-21] MEDS: POTASSIUM CHLORIDE 10 MEQ in SOD CHLORIDE 0.45% 1,000 ML IV SCH ×2 (00:51→10:46)
[2016-09-21] MEDS: HYDROmorphONE 1 MG/ML SYG IV PRN ×3 (03:36→17:52)
[2016-09-21 05:23] LABS: ADD SCAN DIFF NO
[2016-09-21 05:49] LABS: ALBUMIN 3.1 g/dl (3.3-4.9)
[2016-09-21 05:50] LABS: POTASSIUM 4.2 mmol/L (3.5-5.1)
[2016-09-21 05:52] LABS: BILIRUBIN,INDIRECT 0.6 mg/dl (0-1.1); BILIRUBIN,TOTAL 0.6 mg/dl (0.2-1.3); CREATININE 0.76 mg/dl (0.61-1.24)
[2016-09-21 05:53] LABS: CALCIUM 8.2 mg/dl (8.4-10.2); TOTAL PROTEIN 6.5 g/dl (6.1-8.1)
[2016-09-21 05:57] LABS: ALBUMIN/GLOBULIN RATIO 0.91
[2016-09-21] MEDS: PIPER-TAZO 3.375 GM IV (PMX) 100 ML IVPB SCH ×2 (06:11→15:31)
[2016-09-21] MEDS: FAMOTIDINE 20 MG INJ IV SCH (06:11)
[2016-09-21 07:06] LABS: ABNORMAL IP MESSAGE 1; BASOPHILS % 0.2 % (0.0-2.0); EOSINOPHILS % 0.2 % (0.0-7.0); HEMATOCRIT 41.7 % (42.0-52.0); HEMOGLOBIN 13.7 g/dl (14.0-18.0); LYMPHOCYTES % 6.7 % (15.0-51.0); MEAN CORPUSCULAR HEMOGLOBIN 31.9 pg (29.0-33.0); MEAN CORPUSCULAR HGB CONC 32.9 g/dl (32.0-37.0); MEAN PLATELET VOLUME 11.9 fl (7.4-10.4); MONOCYTE # 1.8 10^3/ul (0.3-0.9); MONOCYTES % 11.8 % (0.0-11.0); NEUTROPHIL # 11.9 10^3/ul (1.6-7.5); NEUTROPHILS % 80.2 % (39.0-77.0); PLATELET COUNT 182 10^3/UL (140-415); RED CELL DISTRIBUTION WIDTH 12.6 % (11.5-14.5); WHITE BLOOD COUNT 14.9 10^3/ul (4.8-10.8)
[2016-09-21 07:47] VITALS: BP 141/85; RESP 16
--- NOTE | 2016-09-21 09:01 | CONS ---
Date/Time of Note Date/Time of Note DATE: 09/21/16 TIME: 08:59 Assessment/Plan Assessment/Plan Chief Complaint/Hosp Course Mr Gerald Ricardo is 50 YO M that presented to ED intense abdominal pain, no nausea, nonbloody bilious vomiting for several hours as started earlier this morning. Patient denies fever, chills, diarrhea, hematemesis, sick contacts, EtOH abuse, travel outside the [place], metal implants, new medications, and previous episode. Patient denies any comorbid conditions. Lipase presently over 56,000. Problems: Additional Assessment/Plan Abdominal pain/nausea/vomiting Pancreatitis Nausea and pain control Advance diet as tolerated MRCP: 1. Gallstones in the gallbladder. Gallbladder distension. No evidence of cholecystitis. 2. Dilated common bile duct measuring 17 mm and mildly dilated pancreatic duct measuring 4 mm. 3. Probable 0.5 cm obstructing calculus distally in the common bile duct. 4. Acute pancreatitis. ERCP: 1. Bulging papilla, biopsy taken. 2. Stone imported at ampulla. 3. Ampulla appears abnormal papillated, biopsy taken Review triglycerides Monitor LFTs, amylase, lipase Recommend Surgery consult Further recommendations depend on clinical course Patient seen in collaboration with Dr. Lloyd Consultation Date/Type/Reason Admit Date/Time Sep 17, 2016 at 05:21 Type of Consultation: Gastroenterology 24 HR Interval Summary Free Text/Dictation Pathology pending Tolerating diet, denies abdominal pain, nausea, vomiting Leukocytosis improving Exam/Review of Systems Vital Signs Vitals Vital Signs Date Time Temp Pulse Resp B/P Pulse Ox O2 Delivery O2 Flow Rate FiO2 09/21/16 07:47 98.1 85 16 141/85 96 09/20/16 20:00 2.0 09/19/16 20:20 Nasal Cannula Intake and Output 09/20/16 09/20/16 09/21/16 15:00 23:00 07:00 Intake Total 100 ml 1875 ml 2200 ml Output Total 1200 ml 1050 ml Balance 100 ml 675 ml 1150 ml Exam Constitutional: alert, oriented, well developed Psych: nl mood/affect Head: normocephalic Eyes: EOMI, nl conjunctiva, nl lids ENMT: nl external ears & nose, nl lips & teeth, nl nasal mucosa & septum Respiratory: clear to auscultation, normal air movement Cardiovascular: regular rate and rhythm Gastrointestinal: soft, slight right upper quadrant and epigastric tenderness Musculoskeletal: nl extremities to inspection Neurological: THIRD RIGGER II-XII intact Results Result Diagram: 09/21/1643609/21/16436 Results 24 hrs Laboratory Tests Test 09/21/16 04:37 Alanine Aminotransferase (ALT/SGPT) 45 Albumin 3.1 L Albumin/Globulin Ratio 0.91 Alkaline Phosphatase 69 Anion Gap 15 Aspartate Amino Transf (AST/SGOT) 29 Basophils # 0.0 Basophils % 0.2 Blood Urea Nitrogen 13 Calcium Level 8.2 L Carbon Dioxide Level 27 Chloride Level 101 Creatinine 0.76 Direct Bilirubin 0.00 Eosinophils # 0.0 Eosinophils % 0.2 Globulin 3.40 H Glucose Level 90 Hematocrit 41.7 L Hemoglobin 13.7 L Indirect Bilirubin 0.6 Lymphocytes # 1.0 Lymphocytes % 6.7 L Mean Corpuscular Hemoglobin 31.9 Mean Corpuscular Hemoglobin Concent 32.9 Mean Corpuscular Volume 97.0 Mean Platelet Volume 11.9 H Monocytes # 1.8 H Monocytes % 11.8 H Neutrophils # 11.9 H Neutrophils % 80.2 H Nucleated Red Blood Cells # 0.0 Nucleated Red Blood Cells % 0.0 Platelet Count 182 Potassium Level 4.2 Red Blood Count 4.30 L Red Cell Distribution Width 12.6 Sodium Level 139 Total Bilirubin 0.6 Total Protein 6.5 White Blood Count 14.9 H Medications Medications Current Medications Lorazepam (Ativan) 0.5 mg Q6H PRN IV ANXIETY; Start 09/17/16 at 05:30 Ondansetron HCl (Zofran Inj) 4 mg Q6H PRN IV NAUSEA AND/OR VOMITING Last administered on 09/17/16 21:28; Admin Dose 4 MG; Start 09/17/16 at 05:30 Acetaminophen 650 mg 650 mg Q6H PRN [place] PAIN LEVEL 1-3 OR FEVER; Start 09/17/16 at 05:30 Potassium Chloride/Sodium Chloride (KCl/1/2 NS) 1,005 ml @ 125 mls/hr Q8H3M IV Last administered on 09/21/16 00:51; Admin Dose 125 MLS/HR; Start 09/17/16 at 14:00 Hydromorphone HCl 1 mg 1 mg Q4H PRN IV PAIN Last administered on 09/21/16 08: 10; Admin Dose 1 MG; Start 09/18/16 at 10:30 Piperacillin Sod/ Tazobactam Sod (Zosyn 3.375gm/ 100 ml (Pmx)) 100 ml @ 200 mls /hr Q8 IVPB Last administered on 09/21/16 06:11; Admin Dose 200 MLS/HR; Start 09/18/16 at 14:00 Simethicone (Mylicon) 80 mg Q6H PRN PO DISTENSION/GAS/BLOATING Last administered on 09/21/16 06:10; Admin Dose 80 MG; Start 09/21/16 at 00:00 KALYANI MORRELL Sep 21, 2016 09:01
--- NOTE | 2016-09-21 11:21 | PDOCDIS ---
Discharge Instructions DIAGNOSIS Discharge Diagnosis: 1. Acute pancreatitis secondary to gallstones 2. Choledocholilthiasis CONDITION Patient Condition: Stable HOME CARE INSTRUCTIONS: Diet Instructions: Low Fat /Cholesterol FOLLOW UP/APPOINTMENTS Appointments 1. Follow up with Dr. Gwendolyn Lloyd in one week DC CAUSEY Sep 21, 2016 11:21
[2016-09-21] MEDS ORDERED: AMOX1TAB10 PO (11:23)
[2016-09-21] MEDS ORDERED: TRAM50TA2 PO (11:23)
[2016-09-21] MEDS ORDERED: SENN-53 PO (11:55)
[2016-09-21] MEDS ORDERED: MAGNESIUM HYDROXIDE 30ML CUP PO PRN (12:00)
[2016-09-21] MEDS ORDERED: POLYETHYLENE GLYCOL 17 GM PACKET PO SCH (12:00)
[2016-09-21] MEDS ORDERED: LACTULOSE 30ML CUP PO ONE (12:00)
[2016-09-21] MEDS ORDERED: SENNA TAB PO SCH (12:00)
--- NOTE | 2016-09-21 15:22 | DS ---
Date/Time of Note Date/Time of Note DATE: 09/21/16 TIME: 15:14 Discharge Summary Admission/Discharge Info Admit Date/Time Sep 17, 2016 at 05:21 Discharge Date/Time Final Diagnosis 1. Acute pancreatitis secondary to gallstones. 2. Cholelithiasis with underlying choledocholithiasis. 3. Dyslipidemia. Patient Condition: Stable Consults 1. Dr. Gwendolyn Lloyd Hospital Course This is a 50-year-old male with no reported past medical history came to [facility] due to reports of abdominal pain. According to report patient did have severe upper abdominal pain on the day of admission. He had some associated vomiting with this issue. Patient did have abdominal MRI that did show gallstones in the gallbladder with gallbladder distention but no evidence of cholecystitis. He also had dilated common bile that measuring 17 mm and mildly dilated pancreatic duct measuring 4 mm. Patient was seen by civil clerk. He was also seen with acute pancreatitis. Patient was placed npo and given IV fluids. He was also provided with appropriate analgesics. He did have ERCP. Patient was seen with stones impacted in a bulging papilloma. He did have post-sphincterotomy and stone removal. He did tolerate procedure well. Patient's pancreatic enzymes did normalize. His leukocytosis also did downward trend. He is otherwise optimized medically. He was noted with history of dyslipidemia and advised low-fat low-cholesterol diet. He was also continued on analgesics for his pain. He was provided with bowel regimen for his reported constipation. During his course of stay did improve. Plan of care was discussed with patient and patient did verbalize understanding. On the day of discharge patient was in stable condition Discussed plan of care with Dr. Carter Discharge process time is 40 minutes Disposition: Home Home Meds Active Scripts Sennosides* (Senna Lax*) 8.6 Mg Tablet, 1 TAB PO BID, #30 TAB Prov:DC CAUSEY 09/21/16 Amoxicillin/Potassium Clav (Amox-Clav 875-125 mg Tablet) 875-125 mg Tab, 1 TAB PO BID, #10 TAB Prov:DC CAUSEY 09/21/16 Tramadol HCl (Tramadol HCl) 50 Mg Tablet, 50 MG PO Q6H Y for PAIN, #20 TAB Prov:DC CAUSEY 09/21/16 Follow-up Plan CONDITION Patient Condition: Stable HOME CARE INSTRUCTIONS: Diet Instructions: Low Fat /Cholesterol FOLLOW UP/APPOINTMENTS Appointments 1. Follow up with Dr. Gwendolyn Lloyd in one week Pending Labs Laboratory Tests Test 09/21/16 04:37 Alanine Aminotransferase (ALT/SGPT) 45IU/L (13-69) Albumin 3.1g/dl (3.3-4.9) Albumin/Globulin Ratio 0.91 Alkaline Phosphatase 69IU/L (42-121) Anion Gap 15 (8-16) Aspartate Amino Transf (AST/SGOT) 29IU/L (15-46) Basophils # 0.010^3/ul (0.0-0.1) Basophils % 0.2% (0.0-2.0) Blood Urea Nitrogen 13mg/dl (7-20) Calcium Level 8.2mg/dl (8.4-10.2) Carbon Dioxide Level 27mmol/L (21-31) Chloride Level 101mmol/L (97-110) Creatinine 0.76mg/dl (0.61-1.24) Direct Bilirubin 0.00mg/dl (0.00-0.20) Eosinophils # 0.010^3/ul (0.0-0.5) Eosinophils % 0.2% (0.0-7.0) Globulin 3.40g/dl (1.3-3.2) Glucose Level 90mg/dl (70-220) Hematocrit 41.7% (42.0-52.0) Hemoglobin 13.7g/dl (14.0-18.0) Indirect Bilirubin 0.6mg/dl (0-1.1) Lymphocytes # 1.010^3/ul (0.8-2.9) Lymphocytes % 6.7% (15.0-51.0) Mean Corpuscular Hemoglobin 31.9pg (29.0-33.0) Mean Corpuscular Hemoglobin Concent 32.9g/dl (32.0-37.0) Mean Corpuscular Volume 97.0fl (82.0-101.0) Mean Platelet Volume 11.9fl (7.4-10.4) Monocytes # 1.810^3/ul (0.3-0.9) Monocytes % 11.8% (0.0-11.0) Neutrophils # 11.910^3/ul (1.6-7.5) Neutrophils % 80.2% (39.0-77.0) Nucleated Red Blood Cells # 0.010^3/ul (0.0-0.0) Nucleated Red Blood Cells % 0.0/100WBC (0.0-0.0) Platelet Count 47204^3/UL (140-415) Potassium Level 4.2mmol/L (3.5-5.1) Red Blood Count 4.3010^6/ul (4.70-6.10) Red Cell Distribution Width 12.6% (11.5-14.5) Sodium Level 139mmol/L (135-144) Total Bilirubin 0.6mg/dl (0.2-1.3) Total Protein 6.5g/dl (6.1-8.1) White Blood Count 14.910^3/ul (4.8-10.8) DC CAUSEY Sep 21, 2016 15:22
[2016-09-21] MEDS ORDERED: FAMOTIDINE 20 MG TAB PO SCH (18:00)
== END 2016-09-21 18:25 | disposition home or self-care (01) | DRG 440 ==
LOC: E/R 02:18 → MS1 05:21
PROVIDERS: ADMIT Family Medicine; ATTEND Family Medicine
PROC: 0FB98ZX Excision of Common Bile Duct, Via Natural or Artificial Opening Endoscopic, Diagnostic (ICD-10-PCS; 2016-09-19)
PROC: 0FC98ZZ Extirpation of Matter from Common Bile Duct, Via Natural or Artificial Opening Endoscopic (ICD-10-PCS; principal; 2016-09-19 17:30)
DX: K85.10 Biliary acute pancreatitis without necrosis or infection (principal); E78.5 Hyperlipidemia, unspecified; K80.20 Calculus of gallbladder without cholecystitis without obstruction; R73.03 Prediabetes
CPT/HCPCS: 36415; 71010; 74176; 74181; 74330; 76705; 80053; 80061; 80076; 81003; 82150; 82247; 82248; 82378; 83036; 83690; 83735; 84100; 84439; 84443; 84478; 85025; 85610; 85730; 86301; 88305; 96374; 96375; 96376; J0330; J1170; J2270; J2405; J2543; J2710; J3480; J7030; Q9967